=== PATIENT | female | born 1980 | race Caucasian/White ===

== ENCOUNTER 2018-12-18 10:44 | Inpatient (IN) | payer OTHER ==
[2018-12-18 11:27] VITALS: BMI 23.3
--- NOTE | 2018-12-18 13:41 | HP ---
COWS - Scale Resting Pulse: 0= ID 80 or Below Sweatin= Chills/Flushing Restless Observation: 3= Extraneous Movement Pupil Size: 1= Pupils >than Normal Bone or Joint Aches: 2= Severe Diffuse Aches Runny Nose/ Eye Tearin= Runny Nose/Eyes GI Upset > 30mins: 2= Nausea/Diarrhea Tremor Observation: 2= Slight Tremor Visible Yawning Observation: 1= 1-2x During Session Anxiety or Irritability: 2=Irritable/Anxious Goose Flesh Skin: 0=Smooth Skin COWS Score: 16 CIWA Score - Admission Criteria [facility]ASAS Guidelines: Admission for Medically Managed Detox: Requires at least one of the followin. CIWA greater than 12 2. Seizures within the past 24 hours 3. Delirium tremens within the past 24 hours 4. Hallucinations within the past 24 hours 5. Acute intervention needed for co occurring medical disorder 6. Acute intervention needed for co occurring psychiatric disorder 7. Severe withdrawal that cannot be handled at a lower level of care (continued vomiting, continued diarrhea, abnormal vital signs) requiring intravenous medication and/or fluids 8. Admission ROS S - HPI Chief Complaint: i need help to stop using oxycodone Allergies/Adverse Reactions: Allergies Allergy/AdvReac Type Severity Reaction Status Date / Time No Known Allergies Allergy Verified 12/18/18 13:15 History of Present Illness: this 38 years old female with withdrawal symptom,oxycodone dependence seeking detox,withdrawal symptom last treatment rehab in 01/27 had tooth extraction left upper molar on antibiotics fx of right 5th metacarpal head longest sobriety 6 months plan for rehab after detox Exam Limitations: No Limitations - Ebola screening Have you traveled outside of the country in the last 21 days: No Have you had contact with anyone from an Ebola affected area: No Have you been sick,other than usual withdrawal symptoms: No Do you have a fever: No - Review of Systems Constitutional: Chills, Loss of Appetite, Malaise, Night Sweats, Changes in sleep, Weakness EENT: reports: Tearing, Nose Congestion, Other (s/p tooth extraction upper molar ) Respiratory: reports: No Symptoms reported Cardiac: reports: No Symptoms Reported GI: reports: Diarrhea, Nausea, Abdominal cramping : reports: No Symptoms Reported Musculoskeletal: reports: Back Pain, Joint Pain, Muscle Pain, Joint Stiffness Integumentary: reports: Dryness Neuro: reports: Headache, Tremors Endocrine: reports: No Symptoms Reported Hematology: reports: No Symptoms Reported Psychiatric: reports: No Sypmtoms Reported, Judgement Intact, Mood/Affect Appropiate, Orientated x3, other Other Systems: Reviewed and Negative Patient History - Patient Medical History Hx Anemia: No Hx Asthma: No Hx Chronic Obstructive Pulmonary Disease (COPD): No Hx Cancer: No Hx Cardiac Disorders: No Hx Congestive Heart Failure: No Hx Hypertension: No Hx Hypercholesterolemia: No Hx Seizures: No Hx Dementia: No Hx Diabetes: No Hx Gastrointestinal Disorders: No Hx Liver Disease: No Hx Genitourinary Disorders: No Hx Sexually Transmitted Disorders: No Hx Renal Disease (ESRD): No Hx Thyroid Disease: No Hx Human Immunodeficiency Virus (HIV): No (2017 negative) Hx Hepatitis C: No Hx Depression: Yes (no med) Hx Suicide Attempt: No Hx Bipolar Disorder: No Hx Schizophrenia: No Other Medical History: no suicidal,no homicidal - Patient Surgical History Past Surgical History: Yes Other Surgical History: tooth extraction left upper mo;oar - PPD History Previous Implant?: Yes Documented Results: Negative w/o proof Implanted On Prior [facility] Admission?: No PPD to be Administered?: Yes - Reproductive History Patient is a Female of Child Bearing Age (11 -55 yrs old): Yes Last Menstrual Period: 12/04/18 Patient : No - Smoking Cessation Smoking history: Former smoker Have you smoked in the past 12 months: Yes Aproximately how many cigarettes per day: 2 If you are a former smoker, when did you quit?: 09/2018 Hx Chewing Tobacco Use: No Initiated information on smoking cessation: Yes 'Breaking Loose' booklet given: 12/18/18 - Substance & Tx. History Hx Alcohol Use: No Hx Substance Use: Yes Substance Use Type: Opiates Hx Substance Use Treatment: Yes (rehab 1017) - Substances Abused roxycodone/percocet Route: Oral Frequency: Daily Amount used: 10 pills (15mg) Age of first use: 18 Date of Last Use: 12/18/18 Family Disease History - Family Disease History Family Disease History: Other: Father (alcohol), Mother (dsa,) Admission Physical Exam [facility] - Vital Signs Vital Signs: Vital Signs - 24 hr 12/18/18 11:25 Temperature 98.4 F Pulse Rate 61 Respiratory 18 Rate Blood Pressure 118/67 - Physical General Appearance: Yes: Moderate Distress, Tremorous, Sweating, Anxious HEENTM: Yes: Normal ENT Inspection, Normocephalic, SANDRA, Other (s/p tooth extraction left upper mo;lar) Respiratory: Yes: Lungs Clear, Normal Breath Sounds, No Respiratory Distress Neck: Yes: Within Normal Limits, Supple, Trachea in good position Breast: Yes: Breast Exam Deferred Cardiology: Yes: Within Normal Limits, Regular Rhythm, Regular Rate, S1, S2 Abdominal: Yes: Within Normal Limits, Non Tender, Flat, Soft, Organomegaly Genitourinary: Yes: Within Normal Limits Back: Yes: Muscle Spasm Musculoskeletal: Yes: full range of Motion, Back pain, Muscle Pain Extremities: Yes: Tremors Neurological: Yes: clinic charge nurse II-XII NML intact, Fully Oriented, Alert, Motor Strength 5/5 Integumentary: Yes: Dry Lymphatic: Yes: Within Normal Limits - Diagnostic (1) Opioid dependence with withdrawal Current Visit: Yes Status: Acute (2) S/P tooth extraction Current Visit: Yes Status: Acute (3) Nicotine dependence Current Visit: Yes Status: Acute Cleared for Admission [facility] - Detox or Rehab [facility] Level of Care: Medically Managed Detox Regimen/Protocol: Methadone [facility] Breath Alcohol Content Breath Alcohol Content: 0 Urine Pregancy Test - Result Urine Test Results: Negative - NO Line Present Urine Drug Screen - Results Drug Screen Negative: No Urine Drug Screen Results: OXY-Oxycodone Inpatient Rehab Admission - Rehab Decision to Admit Inpatient rehab admission?: No
[2018-12-18] MEDS ORDERED: cloNIDine HCL 0.1 MG TABLET PO PRN (13:52)
[2018-12-18] MEDS ORDERED: MAG HYDROX/AL HYDROX/SIMETH 30 ML UNIT-DOSE CUP PO PRN (13:52)
[2018-12-18] MEDS ORDERED: BISMUTH SUBSALICYLATE 262 MG/15 ML BTL PO PRN (13:52)
[2018-12-18] MEDS ORDERED: MENTHOL/PHENOL 1 EACH UD MM PRN (13:52)
[2018-12-18] MEDS ORDERED: hydrOXYzine PAMOATE 25 MG CAPSULE (FP) PO PRN (13:52)
[2018-12-18] MEDS ORDERED: ACETAMINOPHEN 325 MG TABLET (FP) PO PRN ×2 (13:52)
[2018-12-18] MEDS ORDERED: MELATONIN 5 MG TABLETS PO PRN (13:52)
[2018-12-18] MEDS ORDERED: MAGNESIUM CITRATE 300 ML BOTTLE PO PRN (13:52)
[2018-12-18] MEDS ORDERED: METHADONE HCL 10 MG TABLET (FOR DETOX USE ONLY) PO ONE ×2 (13:55→23:00)
[2018-12-18] MEDS: IBUPROFEN 400 MG TABLET (FP) PO PRN (17:32)
[2018-12-18] MEDS: AMOXICILLIN PO SCH (22:55)
[2018-12-18] MEDS: clonazePAM 0.5 MG TABLET PO PRN (22:56)
[2018-12-18] MEDS: THIAMINE HCL 100 MG TABLET (FP) PO SCH (22:56)
[2018-12-19] MEDS ORDERED: METHADONE HCL 10 MG TABLET (FOR DETOX USE ONLY) PO ONE (10:00)
[2018-12-19 10:14] LABS: HEMATOCRIT 37.7 % (32.4-45.2); HEMOGLOBIN 13.2 GM/dL (10.7-15.3); MEAN CELL VOLUME 94.4 fl (80-96); MEAN PLT VOLUME 7.5 fl (7.5-11.1); PLATELET COUNT 319 K/MM3 (134-434); RBC 3.99 M/mm3 (3.60-5.2); RDW 13.4 % (11.6-15.6); WHITE BLOOD COUNT 4.8 K/mm3 (4.0-10.0)
[2018-12-19] MEDS: AMOXICILLIN PO SCH ×2 (10:34→22:12)
[2018-12-19] MEDS: METHOCARBAMOL 500 MG TABLET PO PRN ×2 (10:37→20:52)
[2018-12-19] MEDS: clonazePAM 0.5 MG TABLET PO PRN ×3 (10:37→23:04)
[2018-12-19] MEDS: PRENATAL VITAMINS W/ FOLIC ACID TABLET (FP) PO SCH (10:37)
[2018-12-19 10:44] LABS: ALK PHOS 79 U/L (45-117); ANION GAP 6 MMOL/L (8-16); BILIRUBIN,TOTAL 0.5 mg/dL (0.2-1); BLOOD UREA NITROGEN 10 mg/dL (7-18); CALCIUM 8.8 mg/dL (8.5-10.1); CHLORIDE 106 mmol/L (98-107); CO2 26 mmol/L (21-32); CREATININE 0.7 mg/dL (0.55-1.3); GLUCOSE,RANDOM 90 mg/dL (74-106); POTASSIUM 4.5 mmol/L (3.5-5.1); SGOT/AST 19 U/L (15-37); SGPT/ALT 29 U/L (13-61); SODIUM 138 mmol/L (136-145); TOT PROT 7.1 g/dl (6.4-8.2)
[2018-12-19] MEDS: IBUPROFEN 400 MG TABLET (FP) PO PRN ×2 (15:38→22:11)
--- NOTE | 2018-12-19 15:38 | PN ---
BHS COWS - Scale Resting Pulse: 0= [place] 80 or Below Sweatin= Chills/Flushing Restless Observation: 1= Difficult to Sit Still Pupil Size: 0= Normal to Room Light Bone or Joint Aches: 2= Severe Diffuse Aches Runny Nose/ Eye Tearin= None GI Upset > 30mins: 0= None Tremor Observation of Outstretched Hands: 2= Slight Tremor Visible Yawning Observation: 1= 1-2x During Session Anxiety or Irritability: 2=Irritable/Anxious Goose Flesh Skin: 3=Piloerection COWS Score: 12 BHS Progress Note (SOAP) Subjective: Body Aches, Chills, H/A, Goose Flesh. Objective: PATIENT A & O X 3, OBSERVED AMBULATING ON UNIT. IN NO ACUTE DISTRESS. 12/19/18 15:37 Vital Signs Temperature 97.4 F L 12/19/18 13:58 Pulse Rate 75 12/19/18 13:58 Respiratory Rate 17 12/19/18 13:58 Blood Pressure 101/65 12/19/18 13:58 O2 Sat by Pulse Oximetry (%) Laboratory Tests 12/19/18 12/19/18 05:30 05:30 WBC 4.8 RBC 3.99 Hgb 13.2 Hct 37.7 MCV 94.4 MCH 33.0 MCHC 35.0 RDW 13.4 Plt Count 319 MPV 7.5 Sodium 138 Potassium 4.5 Chloride 106 Carbon Dioxide 26 Anion Gap 6 L BUN 10 Creatinine 0.7 Creat Clearance w eGFR > 60 Random Glucose 90 Calcium 8.8 Total Bilirubin 0.5 AST 19 ALT 29 Alkaline Phosphatase 79 Total Protein 7.1 Albumin 4.0 LABS NOTED. RPR RESULT PENDING. 12/19/18 15:37 Assessment: 12/19/18 15:37 WITHDRAWAL SYMPTOMS. Plan: CONTINUE DETOX.
[2018-12-19] MEDS: MAGNESIUM HYDROX 2400MG/30ML ORAL SUSPENSION 30 ML CUP PO PRN (16:43)
[2018-12-19 19:43] LABS: URINE APPEARANCE SLCLOUDY; URINE BILIRUBIN NEGATIVE (<2.0 mg/dL); URINE COLOR LTYELLOW; URINE GLUCOSE (UA) NEGATIVE (NEGATIVE); URINE KETONE NEGATIVE (NEGATIVE); URINE LEUK ESTERASE NEGATIVE (NEGATIVE); URINE NITRITE NEGATIVE (NEGATIVE); URINE PROTEIN NEGATIVE (NEGATIVE); URINE UROBILINOGEN NEGATIVE mg/dL (0.2-1.0)
[2018-12-19] MEDS: THIAMINE HCL 100 MG TABLET (FP) PO SCH (22:44)
[2018-12-20] MEDS ORDERED: METHADONE HCL 10 MG TABLET (FOR DETOX USE ONLY) PO ONE (10:00)
--- NOTE | 2018-12-20 10:35 | PN ---
BHS COWS - Scale Resting Pulse: 0= [place] 80 or Below Sweatin= Chills/Flushing Restless Observation: 0= Sits Still Pupil Size: 0= Normal to Room Light Bone or Joint Aches: 1= Mild Discomfort Runny Nose/ Eye Tearin= Nasal Congestion GI Upset > 30mins: 1= Stomach Cramp Tremor Observation of Outstretched Hands: 1= Tremor [place], Not Seen Yawning Observation: 2= >3x During Session Anxiety or Irritability: 1=Feels Anxious/Irritable Goose Flesh Skin: 0=Smooth Skin COWS Score: 8 BHS Progress Note (SOAP) Subjective: body aches chronic pain treated with oxy tid last filled 14 days on 11/26/18 patient has chronic anxiety treated with xanax 0.5 mg qid last filled 14 days on 11/26/18 tremor poor concentration mild gi discomfort able to tolerate food and fluid well Objective: 12/20/18 10:34 Vital Signs Temperature 97.6 F 12/20/18 09:42 Pulse Rate 79 12/20/18 09:42 Respiratory Rate 18 12/20/18 09:42 Blood Pressure 82/55 L 12/20/18 09:42 O2 Sat by Pulse Oximetry (%) Laboratory Last Values WBC 4.8 K/mm3 (4.0-10.0) 12/19/18 05:30 RBC 3.99 M/mm3 (3.60-5.2) 12/19/18 05:30 Hgb 13.2 GM/dL (10.7-15.3) 12/19/18 05:30 Hct 37.7 % (32.4-45.2) 12/19/18 05:30 MCV 94.4 fl (80-96) 12/19/18 05:30 MCH 33.0 pg (25.7-33.7) 12/19/18 05:30 MCHC 35.0 g/dl (32.0-36.0) 12/19/18 05:30 RDW 13.4 % (11.6-15.6) 12/19/18 05:30 Plt Count 319 K/MM3 (134-434) 12/19/18 05:30 MPV 7.5 fl (7.5-11.1) 12/19/18 05:30 Sodium 138 mmol/L (136-145) 12/19/18 05:30 Potassium 4.5 mmol/L (3.5-5.1) 12/19/18 05:30 Chloride 106 mmol/L (98-107) 12/19/18 05:30 Carbon Dioxide 26 mmol/L (21-32) 12/19/18 05:30 Anion Gap 6 MMOL/L (8-16) L 12/19/18 05:30 BUN 10 mg/dL (7-18) 12/19/18 05:30 Creatinine 0.7 mg/dL (0.55-1.3) 12/19/18 05:30 Creat Clearance w eGFR > 60 (>60) 12/19/18 05:30 Random Glucose 90 mg/dL (74-106) 12/19/18 05:30 Calcium 8.8 mg/dL (8.5-10.1) 12/19/18 05:30 Total Bilirubin 0.5 mg/dL (0.2-1) 12/19/18 05:30 AST 19 U/L (15-37) 12/19/18 05:30 ALT 29 U/L (13-61) 12/19/18 05:30 Alkaline Phosphatase 79 U/L (45-117) 12/19/18 05:30 Total Protein 7.1 g/dl (6.4-8.2) 12/19/18 05:30 Albumin 4.0 g/dl (3.4-5.0) 12/19/18 05:30 Urine Color Ltyellow 12/19/18 11:33 Urine Appearance Slcloudy 12/19/18 11:33 Urine pH 5.0 (5.0-8.0) 12/19/18 11:33 Ur Specific [place] 1.010 (1.010-1.035) 12/19/18 11:33 Urine Protein Negative (NEGATIVE) 12/19/18 11:33 Urine Glucose (UA) Negative (NEGATIVE) 12/19/18 11:33 Urine Ketones Negative (NEGATIVE) 12/19/18 11:33 Urine Blood Negative (NEGATIVE) 12/19/18 11:33 Urine Nitrite Negative (NEGATIVE) 12/19/18 11:33 Urine Bilirubin Negative (<2.0 mg/dL) 12/19/18 11:33 Urine Urobilinogen Negative mg/dL (0.2-1.0) 12/19/18 11:33 Ur Leukocyte Esterase Negative (NEGATIVE) 12/19/18 11:33 lab noted Assessment: 12/20/18 10:35 opiate withdrawal sx Plan: continue detox
[2018-12-20] MEDS: AMOXICILLIN PO SCH (10:40)
[2018-12-20] MEDS: PRENATAL VITAMINS W/ FOLIC ACID TABLET (FP) PO SCH (10:40)
[2018-12-20] MEDS: IBUPROFEN 400 MG TABLET (FP) PO PRN ×3 (10:41→22:54)
[2018-12-20] MEDS: clonazePAM 0.5 MG TABLET PO PRN ×3 (10:41→22:14)
--- NOTE | 2018-12-20 11:57 | EKG ---
Test Reason : Blood Pressure : / mmHG Vent. Rate : 058 BPM Atrial Rate : 058 BPM P-R Int : 150 ms QRS Dur : 080 ms QT Int : 426 ms P-R-T Axes : 051 076 067 degrees QTc Int : 418 ms SINUS BRADYCARDIA WITH SINUS ARRHYTHMIA OTHERWISE NORMAL ECG NO PREVIOUS ECGS AVAILABLE Confirmed by SAVI MCKEON, ADELA ([id number]) on 12/20/2018 11:57:24 AM Referred By: Confirmed By:ADELA HOU MD
[2018-12-20] MEDS: METHOCARBAMOL 500 MG TABLET PO PRN ×2 (14:46→22:14)
[2018-12-20] MEDS: THIAMINE HCL 100 MG TABLET (FP) PO SCH (22:14)
[2018-12-21] MEDS: clonazePAM 0.5 MG TABLET PO PRN ×3 (05:54→18:32)
[2018-12-21] MEDS ORDERED: METHADONE HCL 10 MG TABLET (FOR DETOX USE ONLY) PO ONE (10:00)
[2018-12-21] MEDS: PRENATAL VITAMINS W/ FOLIC ACID TABLET (FP) PO SCH (10:21)
--- NOTE | 2018-12-21 13:15 | PN ---
BHS Progress Note (SOAP) Subjective: Anxious, Body Aches. Objective: PATIENT A & O X 3, OBSERVED AMBULATING ON UNIT. IN NO ACUTE DISTRESS. 12/21/18 13:15 Vital Signs Temperature 96.5 F L 12/21/18 09:34 Pulse Rate 78 12/21/18 09:34 Respiratory Rate 18 12/21/18 09:34 Blood Pressure 106/62 12/21/18 09:34 O2 Sat by Pulse Oximetry (%) Laboratory Tests 12/19/18 12/19/18 12/19/18 05:30 05:30 05:30 WBC 4.8 RBC 3.99 Hgb 13.2 Hct 37.7 MCV 94.4 MCH 33.0 MCHC 35.0 RDW 13.4 Plt Count 319 MPV 7.5 Sodium 138 Potassium 4.5 Chloride 106 Carbon Dioxide 26 Anion Gap 6 L BUN 10 Creatinine 0.7 Creat Clearance w eGFR > 60 Random Glucose 90 Calcium 8.8 Total Bilirubin 0.5 AST 19 ALT 29 Alkaline Phosphatase 79 Total Protein 7.1 Albumin 4.0 Urine Color Urine Appearance Urine pH Ur Specific [place] Urine Protein Urine Glucose (UA) Urine Ketones Urine Blood Urine Nitrite Urine Bilirubin Urine Urobilinogen Ur Leukocyte Esterase RPR Titer Nonreactive 12/19/18 11:33 WBC RBC Hgb Hct MCV MCH MCHC RDW Plt Count MPV Sodium Potassium Chloride Carbon Dioxide Anion Gap BUN Creatinine Creat Clearance w eGFR Random Glucose Calcium Total Bilirubin AST ALT Alkaline Phosphatase Total Protein Albumin Urine Color Ltyellow Urine Appearance Slcloudy Urine pH 5.0 Ur Specific [place] 1.010 Urine Protein Negative Urine Glucose (UA) Negative Urine Ketones Negative Urine Blood Negative Urine Nitrite Negative Urine Bilirubin Negative Urine Urobilinogen Negative Ur Leukocyte Esterase Negative RPR Titer LABS NOTED. Assessment: 12/21/18 13:15 WITHDRAWAL SYMPTOMS. Plan: CONTINUE DETOX. PATIENT SCHEDULED FOR D/C TOMORROW.
[2018-12-21] MEDS: IBUPROFEN 400 MG TABLET (FP) PO PRN (14:34)
[2018-12-21] MEDS: MAGNESIUM HYDROX 2400MG/30ML ORAL SUSPENSION 30 ML CUP PO PRN (14:35)
[2018-12-21] MEDS ORDERED: LACTULOSE 20 GM/30 ML UDC (FOR ORAL USE ONLY) PO PRN (19:27)
--- NOTE | 2018-12-21 19:28 | PN ---
[facility] Progress Note Note: Vital Signs Temperature 97 F L 12/21/18 17:47 Pulse Rate 70 12/21/18 17:47 Respiratory Rate 18 12/21/18 17:47 Blood Pressure 110/62 12/21/18 17:47 O2 Sat by Pulse Oximetry (%) c/o of constipation with no improvement with MOM lactuloce TID ordered increase fluids continue to monitor
[2018-12-21] MEDS: THIAMINE HCL 100 MG TABLET (FP) PO SCH (21:36)
[2018-12-22] MEDS ORDERED: METHADONE HCL 5 MG TABLET (FOR DETOX USE ONLY) PO ONE (06:00)
[2018-12-22] MEDS: IBUPROFEN 400 MG TABLET (FP) PO PRN (06:01)
[2018-12-22 09:20] VITALS: BP 105/65; PULSE 73; TEMP 97.8
--- NOTE | 2018-12-22 14:07 | DS ---
[facility] Detox Discharge Summary Admission Date: 12/18/18 Discharge Date: 12/22/18 - History Present History: Opioid Dependence Additional Comments: 38 years old female admitted on 12/18/18 for opiate withdrawal stabilization completed detox regimen after [facility] - Physical Exam Results Vital Signs: Vital Signs Temperature 97.8 F 12/22/18 09:19 Pulse Rate 73 12/22/18 09:19 Respiratory Rate 18 12/22/18 09:19 Blood Pressure 105/65 12/22/18 09:19 O2 Sat by Pulse Oximetry (%) Pertinent Admission Physical Exam Findings: opiate withdrawal sx Laboratory Last Values WBC 4.8 K/mm3 (4.0-10.0) 12/19/18 05:30 RBC 3.99 M/mm3 (3.60-5.2) 12/19/18 05:30 Hgb 13.2 GM/dL (10.7-15.3) 12/19/18 05:30 Hct 37.7 % (32.4-45.2) 12/19/18 05:30 MCV 94.4 fl (80-96) 12/19/18 05:30 MCH 33.0 pg (25.7-33.7) 12/19/18 05:30 MCHC 35.0 g/dl (32.0-36.0) 12/19/18 05:30 RDW 13.4 % (11.6-15.6) 12/19/18 05:30 Plt Count 319 K/MM3 (134-434) 12/19/18 05:30 MPV 7.5 fl (7.5-11.1) 12/19/18 05:30 Sodium 138 mmol/L (136-145) 12/19/18 05:30 Potassium 4.5 mmol/L (3.5-5.1) 12/19/18 05:30 Chloride 106 mmol/L (98-107) 12/19/18 05:30 Carbon Dioxide 26 mmol/L (21-32) 12/19/18 05:30 Anion Gap 6 MMOL/L (8-16) L 12/19/18 05:30 BUN 10 mg/dL (7-18) 12/19/18 05:30 Creatinine 0.7 mg/dL (0.55-1.3) 12/19/18 05:30 Creat Clearance w eGFR > 60 (>60) 12/19/18 05:30 Random Glucose 90 mg/dL (74-106) 12/19/18 05:30 Calcium 8.8 mg/dL (8.5-10.1) 12/19/18 05:30 Total Bilirubin 0.5 mg/dL (0.2-1) 12/19/18 05:30 AST 19 U/L (15-37) 12/19/18 05:30 ALT 29 U/L (13-61) 12/19/18 05:30 Alkaline Phosphatase 79 U/L (45-117) 12/19/18 05:30 Total Protein 7.1 g/dl (6.4-8.2) 12/19/18 05:30 Albumin 4.0 g/dl (3.4-5.0) 12/19/18 05:30 Urine Color Ltyellow 12/19/18 11:33 Urine Appearance Slcloudy 12/19/18 11:33 Urine pH 5.0 (5.0-8.0) 12/19/18 11:33 Ur Specific [place] 1.010 (1.010-1.035) 12/19/18 11:33 Urine Protein Negative (NEGATIVE) 12/19/18 11:33 Urine Glucose (UA) Negative (NEGATIVE) 12/19/18 11:33 Urine Ketones Negative (NEGATIVE) 12/19/18 11:33 Urine Blood Negative (NEGATIVE) 12/19/18 11:33 Urine Nitrite Negative (NEGATIVE) 12/19/18 11:33 Urine Bilirubin Negative (<2.0 mg/dL) 12/19/18 11:33 Urine Urobilinogen Negative mg/dL (0.2-1.0) 12/19/18 11:33 Ur Leukocyte Esterase Negative (NEGATIVE) 12/19/18 11:33 RPR Titer Nonreactive (NONREACTIVE) 12/19/18 05:30 lab noted - Treatment Hospital Course: Detox Protocol Followed, Detoxed Safely, Responded well, Discharged Condition Good, Rehab Referral Accepted Patient has Accepted a Rehab Referral to: [facility] - Medication Discharge Medications: Ambulatory Orders Amoxicillin - [Amoxicillin 875mg Tablet -] 875 mg PO BID 12/18/18 Ibuprofen [Motrin -] 400 mg PO Q6H PRN 12/18/18 Naloxone HCl [Narcan] 4 mg NS ASDIR PRN #1 kit 12/21/18 - Diagnosis (1) Nicotine dependence Status: Acute Qualifiers: Nicotine product type: cigarettes Substance use status: in withdrawal Qualified Code(s): F17.213 - Nicotine dependence, cigarettes, with withdrawal (2) Opioid dependence with withdrawal Status: Acute - AMA Did Patient Leave Against Medical Advice: No
== END 2018-12-22 09:38 | disposition home or self-care (01) | DRG 773 ==
LOC: YASAS 10:44 → Y3N 13:42
PROVIDERS: ADMIT Surgery; ATTEND Surgery
PROC: HZ2ZZZZ Detoxification Services for Substance Abuse Treatment (ICD-10-PCS; principal; 2018-12-18)
DX: F11.23 Opioid dependence with withdrawal (principal); F17.213 Nicotine dependence, cigarettes, with withdrawal; K59.00 Constipation, unspecified; K08.109 Complete loss of teeth, unspecified cause, unspecified class
CPT/HCPCS: 36415; 80053; 81003; 85027; 86593; 93005; 93010; J0735

== ENCOUNTER 2022-03-29 15:46 | Inpatient (IN) | payer OTHER ==
[2022-03-29] MEDS ORDERED: METHOCARBAMOL 500 MG TABLET PO PRN (19:49)
[2022-03-29] MEDS ORDERED: BISMUTH SUBSALICYLATE 524 MG/30 ML PO PRN (19:49)
[2022-03-29] MEDS ORDERED: IBUPROFEN 600 MG TABLET (FP) PO PRN (19:49)
[2022-03-29] MEDS ORDERED: MAG HYDROX/AL HYDROX/SIMETH 30 ML UNIT-DOSE CUP PO PRN (19:49)
[2022-03-29] MEDS ORDERED: BENZOCAINE/MENTHOL (CHLORASEPTIC ) LOZENGE MM PRN (19:49)
[2022-03-29] MEDS ORDERED: MAGNESIUM CITRATE 300 ML BOTTLE PO PRN (19:49)
[2022-03-29] MEDS ORDERED: IBUPROFEN 400 MG TABLET (FP) PO PRN (19:49)
[2022-03-29] MEDS ORDERED: DICYCLOMINE HCL 10 MG CAPSULE PO PRN (19:49)
[2022-03-29] MEDS ORDERED: MELATONIN 5 MG TABLETS PO PRN (19:49)
[2022-03-29] MEDS ORDERED: ACETAMINOPHEN 325 MG TABLET (FP) PO PRN ×2 (19:49)
[2022-03-29] MEDS ORDERED: LOPERAMIDE HCL 2 MG CAPSULE PO PRN (19:49)
[2022-03-29] MEDS ORDERED: MAGNESIUM HYDROX 2400MG/30ML ORAL SUSPENSION 30 ML CUP PO PRN (19:49)
[2022-03-29] MEDS ORDERED: ONDANSETRON *ODT* 4 MG TABLET SL PRN (19:49)
[2022-03-29 20:11] VITALS: BMI 17.9
[2022-03-29] MEDS ORDERED: chlordiazePOXIDE HCL 25 MG CAPSULE PO PRN (20:35)
[2022-03-29] MEDS: hydrOXYzine PAMOATE 25 MG CAPSULE (FP) PO PRN (22:45)
[2022-03-29] MEDS: THIAMINE HCL 100 MG TABLET (FP) PO SCH (22:45)
[2022-03-29] MEDS: chlordiazePOXIDE HCL 25 MG CAPSULE PO SCH (22:46)
[2022-03-30] MEDS: chlordiazePOXIDE HCL 25 MG CAPSULE PO SCH ×4 (05:13→23:04)
[2022-03-30 10:28] LABS: HEMATOCRIT 35.3 % (32.4-45.2); HEMOGLOBIN 12.2 GM/dL (10.7-15.3); MCH 31.8 pg (25.7-33.7); MCHC 34.5 g/dl (32.0-36.0); MEAN CELL VOLUME 92.1 fl (80-96); MEAN PLT VOLUME 7.1 fl (7.5-11.1); PLATELET COUNT 327 10^3/uL (134-434); RBC 3.83 M/mm3 (3.60-5.2); RDW 13.2 % (11.6-15.6); WHITE BLOOD COUNT 5.1 K/mm3 (4.0-10.0)
[2022-03-30 10:33] LABS: CALCIUM 8.8 mg/dL (8.5-10.1)
[2022-03-30 10:34] LABS: BLOOD UREA NITROGEN 13.6 mg/dL (7-18)
[2022-03-30 10:37] LABS: CREATININE 0.6 mg/dL (0.55-1.3)
[2022-03-30 10:38] LABS: BILIRUBIN,TOTAL 0.3 mg/dL (0.2-1); TOT PROT 5.5 g/dl (6.4-8.2)
[2022-03-30] MEDS: PRENATAL VITAMINS W/ FOLIC ACID TABLET (FP) PO SCH (11:00)
[2022-03-30] MEDS: THIAMINE HCL 100 MG TABLET (FP) PO SCH (23:06)
[2022-03-31] MEDS: chlordiazePOXIDE HCL 25 MG CAPSULE PO SCH ×2 (05:56→10:56)
[2022-03-31] MEDS: hydrOXYzine PAMOATE 25 MG CAPSULE (FP) PO PRN (10:55)
[2022-03-31] MEDS: PRENATAL VITAMINS W/ FOLIC ACID TABLET (FP) PO SCH (10:57)
[2022-03-31 13:16] VITALS: BP 139/75; PULSE 74; TEMP 97.3
[2022-03-31] MEDS ORDERED: LORazepam 0.5 MG TABLET PO PRN (13:27)
[2022-03-31] MEDS ORDERED: LORazepam 0.5 MG TABLET PO SCH (17:00)
[2022-04-01] MEDS ORDERED: chlordiazePOXIDE HCL 10 MG CAPSULE PO PRN
[2022-04-01] MEDS ORDERED: LORazepam 0.5 MG TABLET PO SCH (05:00)
[2022-04-01] MEDS ORDERED: chlordiazePOXIDE HCL 10 MG CAPSULE PO SCH (05:00)
[2022-04-02] MEDS ORDERED: LORazepam 0.5 MG TABLET PO SCH (05:00)
[2022-04-02] MEDS ORDERED: chlordiazePOXIDE HCL 10 MG CAPSULE PO SCH (05:00)
[2022-04-03] MEDS ORDERED: chlordiazePOXIDE HCL 10 MG CAPSULE PO ONE (05:00)
[2022-04-03] MEDS ORDERED: LORazepam 0.5 MG TABLET PO ONE (05:00)
== END 2022-03-31 17:23 | disposition left against medical advice (07) | DRG 770 ==
LOC: YASAS 15:46 → Y6N 20:20
PROVIDERS: ADMIT Allergy & Immunology; ATTEND Surgery
PROC: HZ2ZZZZ Detoxification Services for Substance Abuse Treatment (ICD-10-PCS; principal; 2022-03-29)
DX: F10.230 Alcohol dependence with withdrawal, uncomplicated (principal); F14.20 Cocaine dependence, uncomplicated; F17.210 Nicotine dependence, cigarettes, uncomplicated; F31.9 Bipolar disorder, unspecified; F19.24 Other psychoactive substance dependence with psychoactive substance-induced mood disorder
CPT/HCPCS: 36415; 80053; 81025; 85027; 86780; C9803-CS; U0003; U0005